=== PATIENT | male | born 1985 | race Caucasian/White ===

== ENCOUNTER 2019-02-28 09:32 | Emergency (ER) | payer OTHER ==
--- NOTE | 2019-02-28 10:38 | ER Document Report ---
ED Medical Screen (RME) - General Stated Complaint: PSYCH EVAL Time Seen by Provider: 02/28/19 10:35 Primary Care Provider: FRANKIE PARSONS [Primary Care Provider] - Follow up as needed Mode of Arrival: Medic Information source: Patient, Relative - Notes: Patient presents emergency department with suicidal and homicidal ideations. Patient reports attempted suicide when he was 15 years old. Reports it is worse now that he is out of the . Reports homicidal ideations. Reports he is okay as long as his is sitting at his side. Reports he has been burning himself more. He is calm at the moment. Updated on plan of care. I have greeted and performed a rapid initial assessment of this patient. A comprehensive ED assessment and evaluation of the patient, analysis of test results and completion of the medical decision making process will be conducted by additional ED providers. Dictation of this chart was performed using voice recognition software; therefore, there may be some unintended grammatical errors. Doctor's Discharge - Discharge Referrals: FRANKIE PARSONS [Primary Care Provider] - Follow up as needed
[2019-02-28 11:08] LABS: APPEARANCE,URINE CLEAR; BILIRUBIN,URINE NEGATIVE (NEGATIVE); COLOR,URINE YELLOW; GLUCOSE, URINE NEGATIVE (NEGATIVE); KETONES,URINE NEGATIVE (NEGATIVE); LEUKOCYTE ESTERASE,URINE NEGATIVE (NEGATIVE); NITRITE,URINE NEGATIVE (NEGATIVE); PROTEIN,URINE NEGATIVE (NEGATIVE); URINE SPECIFIC GRAVITY 1.011; UROBILINOGEN,URINE NEGATIVE mg/dL (<2.0)
[2019-02-28 11:20] LABS: ABSOLUTE BASOPHILS # (AUTO) 0.1 10^3/uL (0.0-0.2); ABSOLUTE EOSINOPHILS # (AUTO) 0.5 10^3/uL (0.0-0.6); ABSOLUTE LYMPHOCYTES (AUTO) 3.1 10^3/uL (0.5-4.7); ABSOLUTE MONOCYTES (AUTO) 0.8 10^3/uL (0.1-1.4); ABSOLUTE NEUT (AUTO) 6.7 10^3/uL (1.7-8.2); BASOPHILS % (AUTO) 0.5 % (0-2); EOSINOPHILS % (AUTO) 4.4 % (0-6); HEMATOCRIT 47.9 % (37.9-51.0); HEMOGLOBIN 16.4 g/dL (13.5-17.0); MEAN CORPUSCULAR HEMOGLOBIN 32.5 pg (27.0-33.4); MEAN CORPUSCULAR HGB CONC 34.3 g/dL (32.0-36.0); MEAN CORPUSCULAR VOLUME 95 fl (80-97); MONOCYTES % (AUTO) 7.4 % (3-13); PLATELET COUNT 340 10^3/uL (150-450); RED BLOOD COUNT 5.04 10^6/uL (4.35-5.55); RED CELL DISTRIBUTION WIDTH 13.7 % (11.5-14.0); SEGMENTED NEUTROPHILS % (AUTO) 59.7 % (42-78); TOTAL CELLS COUNTED % (AUTO) 100 %; WHITE BLOOD COUNT 11.2 10^3/uL (4.0-10.5)
[2019-02-28 11:29] LABS: URINE AMPHETAMINES SCREEN NEGATIVE; URINE BARBITURATES SCREEN NEGATIVE; URINE BENZODIAZEPINES SCREEN NEGATIVE; URINE COCAINE SCREEN NEGATIVE; URINE MARIJUANA (THC) SCREEN UNCONFIRMED POSITIVE; URINE METHADONE SCREEN NEGATIVE; URINE PHENCYCLIDINE SCREEN NEGATIVE
[2019-02-28 11:43] LABS: ALANINE AMINOTRANSFERASE 38 U/L (21-72); ALBUMIN 4.8 g/dL (3.5-5.0); ALKALINE PHOSPHATASE 81 U/L (38-126); ANION GAP 8 (5-19); ASPARTATE AMINO TRANSFERASE 27 U/L (17-59); BILIRUBIN,DIRECT 0.4 mg/dL (0.0-0.4); BILIRUBIN,TOTAL 0.8 mg/dL (0.2-1.3); BLOOD UREA NITROGEN 17 mg/dL (7-20); CALCIUM 10.2 mg/dL (8.4-10.2); CARBON DIOXIDE 30 mmol/L (22-30); CHLORIDE 103 mmol/L (98-107); GLUCOSE 92 mg/dL (75-110); POTASSIUM 4.8 mmol/L (3.6-5.0); SODIUM 140.7 mmol/L (137-145)
[2019-02-28 11:44] LABS: ACETAMINOPHEN < 10 ug/mL (10-30); ALCOHOL < 10 mg/dL (NONE DETECTED); SALICYLATE < 1.0 mg/dL (2.0-20.0)
--- NOTE | 2019-02-28 13:05 | PSYCHOLOGICAL NOTE ---
Psych Note - Psych Note Date seen by psych provider: 02/28/19 Time seen by psych provider: 11:24 - Call from [facility] at 0830 for collateral information and then 0900 saying patient was in route. Evaluation from 1124- 1135. Psych Note: Reason for Consult: [facility] sent him, PTSD, command auditory hallucinations Contact Permissions: Carlee at [facility]. Antonella at bedside. Patient is a 33 year old male who presented to the ED today via per [facility] recommendation due to history of PTSD with current command auditory hallucinations. [facility] He commented "it got to the point it was time to do something, I was overloaded, Lavell keeps talking to me, I experience Lavell all day everyday but it is too much now, I feel like I could hurt others too, I feel like I'm in a huge fog or like being in a hole." He said yes to SI and said "it is constant, they are just thoughts, there has never been action, I can stop before I get anywhere close to action." Patient acknowledged a few weeks ago he started burning himself and showed his left hand close to where it connects to wrist (there was a scar, no open wound). He denied burning anywhere else on his body. He admitted "I'm a pot head, I smoke everyday." He reported taking his prescribed medications as directed and having been on the same regimen for the past year with a recent increase of an additional 0MG of Prozac and 200MG of Gabapentin. He identified he has been hospitalized for MH and the last time was in 1998. Patient was alert and oriented to self, person, place, time and situation. Mood was depressed with flat affect. He endorsed chronic passive SI with no action and admitted to burning self a couple weeks ago. He noted concern for the Lavell voice it being too much and said he could hurt others too. He did not appear to be responding to internal stimuli as evidenced by fair eye contact (though he did have a blank stare), answering questions appropriately when addressed and staying on topic. Thought processes were slow but linear. Conversational speech was monotone. Intellectual abilities are estimated to be average. Insight, judgment and impulse control were poor as evidenced by physical distress (blank stare, slow thought processes, report of an increase in Lavell/voice telling him to do things). Patient's noted "it has actually been good the past few months." Patient agreed and mentioned finances were better. 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 She commented "I was surprised when he came to talk to me yesterday, i did not realize he was in the place he was men tally." She acknowledged over the weekend "I had a mental breakdown this weekend, it was related to our 18 year old son, patient was supportive and there for me but he blames himself for son's behavior." She stated "things were going well until [facility], medications did not get refilled, it was like starting over, he is not yet on the same dosages as before." Carlee from the [facility] called to give notification of patient being sent to the ED. She provided the following information: "he has severe PTSD, he heres a voice named Lavell who is telling him all kinds of suggestions for ways to hurt himself and others, he knows they are not real but they scare him." She confirmed [facility] and was completely cooperative about going to the ED. She provided the following medication regimen: Gabapentin 200MG QAM and 800MG QHS, Prozac 60MG QD, Lamictal 200MG QD, Seroquel 25MG BID PRN, Magnesium Oxide 800MG QHS and Pyridoxine 100MG QAM. Diagnosis: 309.81 (F43.10) Posttraumatic Stress Disorder by History per [facility] Med[facility] made by the psychiatric medical provider, Dr. Javad MD., includes: Decrease Prozac to 40MG daily for depression but lowering Discontinue Seroquel 25MG twice a day for mood stabilization/psychosis as needed Continue Lamictal 200MG daily for mood stabilization Continue Gabapentin 200MG in the morning and 800MG at night for mood stabilization/calming effect Add Zyprexa 2.5MG in the morning for mood stabilization/psychosis/impulse control Add Zyprexa 5MG at night for mood stabilization/psychosis/impulse control Add Clonidine 0.1MG at night for calming effect/sleep Note at discharge provide script for Prazosin 2MG at night for calming e ffect/sleep/nightmares Impression/Plan: Recommendation to complete 24 Hour IVC Petition given history of PTSD, increased SI and psychosis (voice of Lavell) which is common but has worsened and is command in nature. [facility] (not a scheduled appointment). He has stress surrounding finishing school soon which scares him, not being able to do Fine Arts due to hands, and his having a mental health breakdown this weekend about their 18 year old son for which he blames self. Plan to change medication regimen, hold overnight and reassess in the morning. Consulted with Dr. Tee regarding the management and care of patient. ED Physician in agreement with recommendations.
[2019-02-28] MEDS ORDERED: FLUOXETINE HCL 20 MG CAPSULE PO ONE (13:18)
[2019-02-28] MEDS ORDERED: NICOTINE 14 MG/24 HR PATCH.TD24 TD ONE (13:21)
[2019-02-28] MEDS: OLANZAPINE 2.5 MG TABLET PO SCH (14:53)
--- NOTE | 2019-02-28 16:03 | ER Document Report ---
ED General - General Chief Complaint: Depression Stated Complaint: PSYCH EVAL Time Seen by Provider: 02/28/19 10:35 Primary Care Provider: FRANKIE PARSONS [NO LOCAL MD] - Follow up as needed Mode of Arrival: Medic Information source: Patient Notes: This is a 33-year-old man with a history of PTSD who presents to the emergency room with worsening thoughts of SI. Patient states he is under a lot of pressure lately states he has been hearing voices. Patient appears alert and oriented x3 on my evaluation. He denies any fever, chills, nausea, vomiting, chest pain, abdominal pain. TRAVEL OUTSIDE OF THE [place] IN LAST 30 DAYS: No - HPI Onset: Last week Onset/Duration: Gradual Quality of pain: No pain Severity: None Pain Level: Denies Associated symptoms: denies: Chills, Headache, Shortness of breath Exacerbated by: Denies Relieved by: Denies Similar symptoms previously: Yes Recently seen / treated by doctor: Yes Past Medical History - General Information source: Patient, Relative - - Social History Smoking Status: Current Every Day Smoker Cigarette use (# per day): Yes - 1 pack/day Chew tobacco use (# tins/day): No Frequency of alcohol use: None Drug Abuse: None Lives with: Family Family History: None Patient has suicidal ideation: No Patient has homicidal ideation: No - Past Medical History Cardiac Medical History: Reports: None EENT Medical History: Reports: None Endocrine Medical History: Reports: None Renal/ Medical History: Denies: Hx Peritoneal Dialysis Malignancy Medical History: Reports None GI Medical History: Reports: None Musculoskeletal Medical History: Reports None Psychiatric Medical History: Reports: Hx Post Traumatic Stress Disorder Infectious Medical History: Reports: None Review of Systems - Review of Systems Constitutional: denies: Chills, Fever EENT: No symptoms reported Cardiovascular: No symptoms reported Respiratory: No symptoms reported Gastrointestinal: No symptoms reported Genitourinary: No symptoms reported Male Genitourinary: No symptoms reported Musculoskeletal: No symptoms reported Skin: No symptoms reported Hematologic/Lymphatic: No symptoms reported Neurological/Psychological: See HPI Physical Exam - Vital signs Notes: Physical exam: GENERAL: She is alert and oriented x3, no acute distress HEAD: Atraumatic, normocephalic. EYES: Pupils equal round and reactive to light, extraocular movements intact, sclera anicteric, conjunctiva are normal. ENT: TMs normal, nares patent, oropharynx clear without exudates. Moist mucous membranes. NECK: Normal range of motion, supple without obvious mass or JVD. LUNGS: Breath sounds clear to auscultation bilaterally and equal. No wheezes rales or rhonchi. HEART: Regular rate and rhythm without murmurs, rubs or gallops. ABDOMEN: Soft, normoactive bowel sounds. No tenderness to palpation. No guarding, no rebound. No masses appreciated. EXTREMITIES: Normal range of motion, no pitting or edema. No clubbing or cyanosis. NEUROLOGICAL: Cranial nerves II through XII grossly intact. Normal speech, moving all extremities. PSYCH: Depressed mood, blunted affect. SKIN: Warm, Dry, normal turgor, no rashes or lesions noted. Course - Re-evaluation Re-evalutation: 02/28/19 16:03 Patient is medically stable for psychiatric disposition. He has been evaluated by psychiatry. We have started new medicines. We have adjusted other medicines. We will watch patient overnight and he will be reevaluated tomorrow. - Laboratory Result Diagrams: 02/28/19 10:57 02/28/19 10:57 Laboratory results interpreted by me: 02/28/19 02/28/19 10:57 10:57 WBC 11.2 H Salicylates < 1.0 L Acetaminophen < 10 L Discharge - Discharge Clinical Impression: Mood disorder NOS Condition: Stable Disposition: PSYCH HOSP/UNIT Referrals: LOCALMD,NO [NO LOCAL MD] - Follow up as needed
[2019-02-28] MEDS ORDERED: CLONIDINE HCL 0.1 MG TABLET PO SCH (22:00)
[2019-02-28] MEDS ORDERED: OLANZAPINE 5 MG TABLET PO SCH (22:00)
[2019-02-28] MEDS ORDERED: GABAPENTIN 300 MG CAPSULE PO SCH (22:00)
[2019-03-01] MEDS: OLANZAPINE 2.5 MG TABLET PO SCH (07:43)
[2019-03-01] MEDS ORDERED: GABAPENTIN 100 MG CAPSULE PO SCH (08:00)
[2019-03-01] MEDS ORDERED: LAMOTRIGINE 100 MG TABLET PO SCH (10:00)
--- NOTE | 2019-03-01 10:58 | EKG REPORT ---
SEVERITY:- NORMAL ECG - SINUS RHYTHM : Confirmed by: Corina Hdz 01-Mar-2019 10:57:52
[2019-03-01 15:38] VITALS: BP 115/75
--- NOTE | 2019-03-02 13:30 | PSYCHOLOGICAL NOTE ---
Psych Note - Psych Note Date seen by psych provider: 03/01/19 Time seen by psych provider: 08:17 - Re evaluation from [id number]. Psych Note: Reason for Consult: 1st Re evaluation, 24 Hour IVC Petition, [facility] sent him, PTSD, command auditory hallucinations Contact Permissions: Carlee at [facility]. Antonella who has been a natural support and present. Patient is a 33 year old male who is in the ED on a 24 Hour IVC Petition after voluntarily coming with yesterday per [facility] recommendation due to history of PTSD with command auditory hallucinations. Today patient stated "I feel loopy but good." He noted having "restless leg last night but was able to fall asleep and stay asleep for awhile." He noted "falling asleep and staying asleep was never an issue, if anything I sleep to much." He stated the voice "Lavell was still constant, not bad now, just talking a lot instead of causing an issue." He identified Lavell is not anybody he knew but he "just showed up so he gave him a name, it started in 2013 when things got bad after I got out of the [employer], we lost everything, I was only on Zoloft then and was not taking it." He presented melancholy with flat affect. Thoughts were slowed. Diagnosis: 309.81 (F43.10) Posttraumatic Stress Disorder by History per [facility] Impression/Plan: Recommendation to complete full IVC and seek inpatient placement at inpatient [facility] facility. Significant medication adjustments were recommended and followed through last evening. Some of those changes will begin to take place today and this morning will only make 24 hours of dosing for others. He continued to endorse auditory hallucinations of a voice named Lavell (only talking versus causing an issue today per patient). He reported he felt loopy but otherwise good. Given his PTSD, significant medication changes and the likelihood it will take some time for stabilization inpatient was felt to be required. Consulted with Dr. Tee regarding the management and care of patient. ED Physician in agreement with recommendations.
== END 2019-03-01 16:40 ==
LOC: ER 09:32
DX: F32.9 Major depressive disorder, single episode, unspecified (principal); F43.10 Post-traumatic stress disorder, unspecified; R44.0 Auditory hallucinations; F17.210 Nicotine dependence, cigarettes, uncomplicated; R45.851 Suicidal ideations
CPT/HCPCS: 93005; 99285; 36415; 80307 ×4; 85025; 80053; 81001; 93010; J3490 ×3